=== PATIENT | female | born 1955 | race Caucasian/White ===

== ENCOUNTER 2016-07-27 12:46 | Inpatient (IN) | payer OTHER ==
[2016-07-26 11:52] LABS: CHLORIDE, SERUM 108 MMOL/L (96-112); CREATININE 0.79 MG/DL (0.55-1.02); GFR AFRICAN AMERICAN 94 ML/MIN (>=60); GFR NON AFRICAN AMERICAN 81 ML/MIN (>=60); GLUCOSE, SERUM 106 MG/DL (60-99); POTASSIUM, SERUM 4.2 MMOL/L (3.5-5.3); SODIUM, SERUM 142 MMOL/L (135-148)
[2016-07-26 11:53] LABS: BUN (BLOOD UREA NITROGEN) 9 MG/DL (6-23); CO2 (CARBON DIOXIDE) 28 MMOL/L (24-34)
--- NOTE | ~2016-07-27 | OP ---
Record Of Operation [facility] [address] [place]. [address] NAME: MAX AGUILAR : 55 STATUS : ADM IN [facility]#: [id number] AGE: 60 ADM/REG DATE : 07/27/16 MR#: [id number] REPORT SERV DATE: 07/30/16 DICTATED BY: FOUZIA IYER DATE: 07/30/16 REPORT STATUS : Draft TRANSCRIBED BY: MODL DATE: 07/30/16 DATE OF PROCEDURE: 07/27/2016 PREOP DIAGNOSIS: Incarcerated peristomal hernia. POSTOPERATIVE DIAGNOSIS: Incarcerated peristomal hernia. PROCEDURE: In-depth revision of colostomy with repair of parastomal hernia with movement of the stoma to left upper quadrant. SURGEON: Shell Iyer M.D. RESIDENT: Loyda Dominguez M.D. ANESTHESIA: General. ESTIMATED BLOOD LOSS: 20 mL. FLUIDS: 1000 mL. INDICATION: Ms. Aguilar is a 60-year-old female, who presented with decreased and then no stoma output with pain and inability to reduce the parastomal hernia. Repair was recommended to her with possibly relocation. The risks including but not limited to bleeding, infection, damage to organs, recurrent stoma problems or hernias, infection in case of possible mesh placement, recuperation, DVT, cardiac and pulmonary complications among others were discussed with her. She agreed to proceed DESCRIPTION OF PROCEDURE: The patient was taken to the operating room and placed in supine position. General anesthesia was induced. The abdomen was prepped and draped, and incision was made around the stoma site, which was pulled up and a TA 60 stapler was placed and fired and then the abdomen was again prepped and draped and the instruments used for the initial portion were not utilized and the gown and gloves were changed and then the dissection was carried down to the fascial defect removing the stomal sac and then, it was clear that she would be better off with this relocated in the left upper quadrant and therefore, stoma site was fashioned in the left upper quadrant by removing a bear river of skin and traversing the anterior and posterior rectus and bring the colon out through that site. The fascia was then closed in two layers closing the posterior and anterior rectus sheath with running 0 PDS and two stitches of Vicryl were placed in the skin and the stoma site was otherwise packed, dressing was applied. She tolerated the procedure well. SAMARA/RICARDO Shell Iyer M.D. Record Of Operation [address] [place]. [address] NAME: MAX AGUILAR : 55 STATUS : ADM IN PAT#: [id number] AGE: 60 ADM/REG DATE : 07/27/16 MR#: [id number] REPORT SERV DATE: 07/30/16 DICTATED BY: FOUZIA IYER DATE: 07/30/16 REPORT STATUS : Draft TRANSCRIBED BY: RICARDO DATE: 07/30/16 / [id number] CC: Venessa Pantoja LISA M.
--- NOTE | ~2016-07-27 | DS ---
Discharge Summary [facility] [address] [place]. [address] NAME: MAX AGUILAR : 55 STATUS : DIS IN PAT#: [id number] AGE: 60 ADM/REG DATE : 07/27/16 MR#: [id number] REPORT SERV DATE: 08/07/16 DICTATED BY: FOUZIA IYER DATE: 08/06/16 REPORT STATUS : Draft TRANSCRIBED BY: MODOswaldo DATE: 08/06/16 Data Collection from hospitalization DISCHARGE DIAGNOSIS(ES): 1. Parastomal hernia. 2. Hypothyroidism. 3. Gastroesophageal reflux disease. 4. History of colorectal cancer. CONSULTATIONS: None. PROCEDURES PERFORMED: In depth revision of colostomy with repair of her parastomal hernia with movement of the stoma to the left upper quadrant, 07/27/2016. PATHOLOGY: Ostomy excision, no significant histopathologic change, mesh excision, fibrous tissue with imbedded mesh, soft tissue peristomal hernia repair, hernia sac. MEDICATIONS: Super B complex with C one daily, potassium gluconate 99 mg daily, Dulcolax 10 mg rectally at bedtime, vitamin C 1000 mg daily, vitamin D3 1000 units daily, Nexium 20 mg every evening, Synthroid 88 mcg daily, Mag oxide 250 mg daily, Percocet 5/325 one every 4 hours as needed, Paxil 20 mg every evening, and MiraLAX powder one packet as directed. CONDITION AT DISCHARGE: Upon discharge, she did appear to be doing well and had no complaints. DISPOSITION: She was discharged home to continue a soft diet with activity as discussed. She was to follow up with me in the office on 08/23/2016. HOSPITAL COURSE: This 60-year-old female presented with decreased and then no stoma output with pain and inability to reduce the parastomal hernia. Repair was recommended to her with possibly relocation. The risk, benefits, and alternatives were discussed with the patient. She was agreeable to proceed. She was admitted for this and further treatment. Upon admission to the hospital, she was taken to the operating room where she did undergo the above procedure. She tolerated this well and was transferred to the recovery room. On postop day #1, she was afebrile and her vital signs were stable. She had no nausea or vomiting noted. On postop day #2, she did continue to do well and had tolerated oral intake. She was continued on supportive care. She had been placed on milk of magnesia as well as Dulcolax. On postop day #3, she did continue to do well, and her stoma was functioning. She did remain in stable condition and was then discharged with the above instructions. Information collected by: Sierra Jackson. I submit the above information as my discharge summary. ALLYSON/RICARDO Discharge Summary [facility] [address] [place]. [address] NAME: MAX AGUILAR : 55 STATUS : DIS IN PAT#: [id number] AGE: 60 ADM/REG DATE : 07/27/16 MR#: [id number] REPORT SERV DATE: 08/07/16 DICTATED BY: FOUZIA IYER DATE: 08/06/16 REPORT STATUS : Draft TRANSCRIBED BY: RICARDO DATE: 08/06/16 Shell Iyer M.D. / [id number] CC: Venessa Pantoja
[~2016-07-27 12:46] MED LIST: BISR PR; MAG OXIDE250 MG PO; NEXIUM20 M1 PO; PAX20 PO; POTASSIUM GLUCO99 MG PO; SUPER B COMP PO; SYN88 PO; VITAMIN D31000 UNIT PO; VITC500 PO
[2016-07-28 06:25] LABS: BASOPHILS 0.1 %; BASOPHILS ABSOLUTE 0.01 10/3/uL (0.0-0.16); EOSINOPHILS 0 %; HEMATOCRIT 37.5 % (36.0-48.0); HEMOGLOBIN 12.4 g/dL (12.0-16.0); IMMATURE GRANULOCYTES 0.2 %; IMMATURE GRANULOCYTES ABSOLUTE 0.02 10/3/uL (0.0-0.11); LYMPHOCYTES 11.3 %; MEAN CORPUS HGB CONC 33.1 g/dL (32.0-36.0); MEAN CORPUSCULAR HEMOGLOB 29.7 pg (26.0-34.0); MEAN CORPUSCULAR VOLUME 89.7 fL (80-100); MEAN PLATELET VOLUME 9.6 fL (9.2-13.0); MONOCYTES 3.4 %; MONOCYTES ABSOLUTE 0.42 10/3/uL (0.21-1.20); NEUTROPHILS ABSOLUTE 10.58 10/3/uL (2.02-8.40); PLATELET COUNT 384 10/3/uL (150-400); RBC DISTRIBUTION WIDTH 13.9 % (12.0-16.0); RED CELL COUNT 4.18 10/6/uL (4.0-5.6)
[2016-07-28 06:27] LABS: BUN (BLOOD UREA NITROGEN) 12 MG/DL (6-23); CALCIUM, SERUM 8.7 MG/DL (8.5-10.4); CHLORIDE, SERUM 108 MMOL/L (96-112); CO2 (CARBON DIOXIDE) 24 MMOL/L (24-34); CREATININE 0.81 MG/DL (0.55-1.02); GFR AFRICAN AMERICAN 91 ML/MIN (>=60); GFR NON AFRICAN AMERICAN 79 ML/MIN (>=60); GLUCOSE, SERUM 133 MG/DL (60-99); MANUAL DIFF NO %; POTASSIUM, SERUM 4.8 MMOL/L (3.5-5.3); SODIUM, SERUM 142 MMOL/L (135-148); WHITE BLOOD CELLS 12.4 10/3/uL (4.5-10.5)
[2016-07-30] MEDS ORDERED: MIRALAX POWDER1 PKT PO (17:48)
[2016-07-30] MEDS ORDERED: PCET PO (17:48)
== END 2016-07-30 18:45 | disposition home or self-care (01) | DRG 355 ==
LOC: SDC/OF 12:46 → 5SO 21:03
PROVIDERS: Colon & Rectal Surgery
PROC: 0WQF0ZZ Repair Abdominal Wall, Open Approach (ICD-10-PCS; principal; 2016-07-27 15:30)
DX: K43.3 Parastomal hernia with obstruction, without gangrene (principal); E03.9 Hypothyroidism, unspecified; Z87.891 Personal history of nicotine dependence; K21.9 Gastro-esophageal reflux disease without esophagitis; Z85.038 Personal history of other malignant neoplasm of large intestine
CPT/HCPCS: 80048; 85014; 85018; 85025; 88300; 88302; 88304; 88305; 93005; A9270-GY; J0690; J1170; J2250; J2270; J2405; J2710; J2795; J3010